=== PATIENT | male | born 1985 | race Caucasian/White ===

== ENCOUNTER 2016-08-17 19:06 | Emergency (ER) | payer OTHER ==
[2016-08-17 19:18] VITALS: BP 147/84; PULSE 72; RESP 18; TEMP 98.1; O2SAT 98
--- NOTE | 2016-08-17 20:12 | C.PDOC ---
History Of Present Illness 31 yr old male presents to the Er with complaints of itchy and watery eyes for the past 1-2 months. Patient reports of redness now with whitish discharge and runny nose. Patient states he has been taking atarax and zaditor drops for the past 2 months with no improvement. Patient reports he has an appointment with a specialist on the but can not wait no longer and is requesting new medicine. Patient denies fever, chills, vision changes, nausea, vomiting, dizziness, headache, weakness or numbness. Time Seen by Provider: 08/17/16 19:23 Chief Complaint (Nursing): Allergic Reaction History Per: Patient History/Exam Limitations: no limitations Onset/Duration Of Symptoms: Persistent (1-2 months ) Past Medical History Reviewed: Historical Data, Nursing Documentation, Vital Signs Vital Signs: Last Vital Signs Temp 98.1 F 08/17/16 19:15 Pulse 72 08/17/16 19:15 Resp 18 08/17/16 19:15 BP 147/84 08/17/16 19:15 Pulse Ox 98 08/17/16 20:21 - Medical History PMH: Asthma Family History: States: No Known Family Hx - Social History Hx Alcohol Use: No Hx Substance Use: No - Immunization History Hx Tetanus Toxoid Vaccination: No Hx Influenza Vaccination: No Hx Pneumococcal Vaccination: No Review Of Systems Except As Marked, All Systems Reviewed And Found Negative. Constitutional: Negative for: Fever, Chills Eyes: Positive for: Other (Bilateral eyes, itchy, redness, watery and whiteish discharge.). Negative for: Vision Change Gastrointestinal: Negative for: Nausea, Vomiting Neurological: Negative for: Weakness, Numbness, Headache, Dizziness Physical Exam - Physical Exam Appears: Well, Non-toxic, No Acute Distress Skin: Warm, Dry, No Rash Head: Atraumatic, Normacephalic Eye(s): bilateral: PERRL, EOMI, Other (Injected conjuctiva with whiteish discharge in the medial corners. ) Ear(s): Bilateral: Normal Nose: Discharge (Clear ), Other ((+) Swollen appearing turbinates) Oral Mucosa: Moist Throat: Normal, No Erythema, No Exudate, No Drooling, No Mass Neck: Normal, Normal ROM, Supple Lymphatic: No Adenopathy Chest: Symmetrical, No Tenderness Cardiovascular: Rhythm Regular, No Murmur Respiratory: Normal Breath Sounds, No Rales, No Rhonchi, No Stridor, No Wheezing Extremity: Normal ROM, No Swelling Neurological/Psych: Oriented x3, Normal Speech, Normal Motor ED Course And Treatment O2 Sat by Pulse Oximetry: 98 Disposition Counseled Patient/Family Regarding: Studies Performed, Diagnosis, Need For Followup, Rx Given - Disposition Referrals: Tiffanie Gonzales MD [Primary Care Provider] - Disposition: HOME/ ROUTINE Disposition Time: 20:29 Condition: STABLE Additional Instructions: Stop taking Zaditor eye drops and use Olopatadine instead as prescribed. Follow up with break and load operator as scheduled. Continue using Atarax. Prescriptions: Olopatadine 0.1% Opht [Patanol 0.1% Opht Soln] 1 drop BOTHEYES BID #1 bottle Instructions: Conjunctivitis (ED) Forms: General Discharge Instructions - Clinical Impression Clinical Impression: Allergic conjunctivitis - PA / SUPERVISOR EDGING / Resident Statement MD/DO has reviewed & agrees with the documentation as recorded. - Scribe Statement The provider has reviewed the documentation as recorded by the Scribe Jessica High All medical record entries made by the Scribe were at my direction and personally dictated by me. I have reviewed the chart and agree that the record accurately reflects my personal performance of the history, physical exam, medical decision making, and the department course for this patient. I have also personally directed, reviewed, and agree with the discharge instructions and disposition.
== END 2016-08-17 20:47 | disposition home or self-care (01) ==
LOC: C.ER 19:06 → SUPCPDRO 19:06 → C.ER 20:47
DX: H10.13 Acute atopic conjunctivitis, bilateral (principal)